=== PATIENT | female | born 1995 | race Hispanic/Latino ===

== ENCOUNTER 2022-05-04 06:33 | Outpatient (CLI) ==
[~2022-05-04] VITALS: Ht 157.5 cm; Wt 77.0 kg
[2022-05-04 06:57] VITALS: BP 117/68
[2022-05-04] MEDS ORDERED: VITA100T59 PO (07:00)
[2022-05-04] MEDS ORDERED: IRON27TA2 PO (07:00)
[2022-05-04] MEDS ORDERED: PRENTAB9 PO (07:00)
[2022-05-04] MEDS ORDERED: HOME MED LIST COMPLETE! XX SCH (07:00)
== END 2022-05-04 08:00 | disposition home or self-care (01) ==
LOC: M LDO 06:33
PROVIDERS: ATTEND Obstetrics & Gynecology
DX: O99.353 Diseases of the nervous system complicating pregnancy, third trimester (principal); G56.01 Carpal tunnel syndrome, right upper limb; Z3A.37 37 weeks gestation of pregnancy
CPT/HCPCS: 59025; G0463

== ENCOUNTER 2022-05-15 18:21 | Outpatient (CLI) ==
[~2022-05-15] VITALS: Ht 157.5 cm; Wt 77.6 kg
[~2022-05-15 18:21] MED LIST: IRON27TA2 PO; PRENTAB9 PO; VITA100T59 PO
[2022-05-15 18:42] VITALS: BP 121/84
[2022-05-15] MEDS ORDERED: HOME MED LIST COMPLETE! XX SCH (19:45)
== END 2022-05-15 19:49 | disposition home or self-care (01) ==
LOC: M LDO 18:21
PROVIDERS: ATTEND Obstetrics & Gynecology
DX: O47.1 False labor at or after 37 completed weeks of gestation (principal); Z3A.38 38 weeks gestation of pregnancy; O99.820 Streptococcus B carrier state complicating pregnancy; O99.013 Anemia complicating pregnancy, third trimester; D64.9 Anemia, unspecified
CPT/HCPCS: 59025; G0463

== ENCOUNTER 2022-05-22 21:05 | Outpatient (CLI) ==
[~2022-05-22] VITALS: Ht 157.5 cm; Wt 77.4 kg
[2022-05-22 21:20] VITALS: BP 133/80
== END 2022-05-22 22:15 | disposition home or self-care (01) ==
LOC: M LDO 21:05
PROVIDERS: ATTEND Obstetrics & Gynecology
DX: O47.1 False labor at or after 37 completed weeks of gestation (principal); Z3A.40 40 weeks gestation of pregnancy; O99.820 Streptococcus B carrier state complicating pregnancy
CPT/HCPCS: 59025; G0463

== ENCOUNTER 2022-05-23 07:11 | Inpatient (IN) | payer OTHER, SELFPAY ==
[~2022-05-23] VITALS: Ht 157.5 cm; Wt 77.2 kg
[2022-05-23] VITALS (35 sets, daily range): BP systolic 104–135; BP diastolic 53–82
[2022-05-23] MEDS ORDERED: PENICILLIN G POTASSIUM IV 5 MU in D5W MINI-BAG PLUS 100 ML IV STA (07:52)
[2022-05-23] MEDS ORDERED: LACTATED RINGER'S 1000 ML IV ONE (07:55)
[2022-05-23] MEDS ORDERED: OXYTOCIN INJ 10 UNITS/ML VIAL (J2590) IV PRN (07:55)
[2022-05-23] MEDS ORDERED: OXYTOCIN DRIP 30 UNITS in IV 1 EA IV PRN ×4 (07:55)
[2022-05-23] MEDS ORDERED: TRANEXAMIC ACID INJection 1,000 MG in NS 100 ML IV PRN (07:55)
[2022-05-23] MEDS ORDERED: METHYLERGONOVINE MALEATE 0.2 MG/ML VIAL (J2210) IM PRN (07:55)
[2022-05-23 08:55] LABS: HEMATOCRIT 35.3 % (36.0-47.0); HEMOGLOBIN 11.4 g/dl (12.0-15.5); MEAN CORPUSCULAR HEMOGLOBIN 25.2 pg (27.0-33.0); MEAN CORPUSCULAR HGB CONC 32.3 g/dl (32.0-36.5); MEAN CORPUSCULAR VOLUME 78.1 fl (80.0-96.0); PLATELET COUNT, AUTOMATED 278 10^3/uL (150-450); RED BLOOD COUNT 4.52 10^6/uL (4.00-5.40); WHITE BLOOD COUNT 10.7 10^3/uL (4.0-10.0)
[2022-05-23] MEDS ORDERED: FENTANYL 2MCG/ML ROPIVACAINE 0.2% IN 0.9% NACL 100ML IVBAG As Ordered ONE (10:24)
[2022-05-23] MEDS ORDERED: ONDANSETRON 4MG 2ML VIAL IV PRN (10:30)
[2022-05-23] MEDS ORDERED: LR 500 ML IV PRN (10:30)
[2022-05-23] MEDS ORDERED: EPIDURAL/PCA KEYS XX PRN (10:30)
[2022-05-23] MEDS ORDERED: ePHEDrine SULFATE 25 MG/5 ML(5MG/ML) SYRINGE IVP PRN (10:30)
[2022-05-23] MEDS ORDERED: FENTANYL/ROPIVACAINE/NACL BAG 100 ML EPIDURAL SCH (10:30)
[2022-05-23] MEDS ORDERED: diphenhydrAMINE 50MG/ML VIAL (J1200) IV PRN (10:30)
[2022-05-23] MEDS ORDERED: NALOXONE INJ 0.4MG/1ML VIAL (J2310 PER 1MG) IV PRN (10:30)
[2022-05-23] MEDS: FENTANYL/ROPIVACAINE/NACL BAG 100 ML EPIDURAL SCH ×2 (10:48→21:02)
[2022-05-23] MEDS: LR 1,000 ML IV SCH ×2 (11:37→16:23)
[2022-05-23] MEDS ORDERED: OXYTOCIN DRIP 30 UNITS in IV 1 EA IV SCH (12:25)
[2022-05-23] MEDS: PENICILLIN G POTASSIUM IV 2.5 MU in IV 1 EA IV SCH ×3 (12:45→20:40)
[2022-05-24] VITALS (10 sets, daily range): BP systolic 120–144; BP diastolic 59–83
[2022-05-24 01:34] LABS: CORD GAS ABE A -7.6; CORD GAS ABE V -7.8; CORD GAS HCO3 A 18.1 MEQ/L; CORD GAS O2 SAT A 80.3 %; CORD GAS O2 SAT V 85.1 %; CORD GAS PH A 7.296 UNITS; CORD GAS PH V 7.293 UNITS; CORD GAS PO2 A 38.4 mmHg; CORD GAS PO2 V 43.2 mmHg; CORD GAS TCO2 A 19.3 MEQ/L; CORD GAS TCO2 V 19.2 MEQ/L
[2022-05-24] MEDS ORDERED: ONDANSETRON 4MG 2ML VIAL IV PRN (01:45)
[2022-05-24] MEDS ORDERED: METHYLERGONOVINE MALEATE 0.2 MG TAB PO PRN (01:45)
[2022-05-24] MEDS ORDERED: DOCUSATE SODIUM 100MG CAPSULE PO PRN (01:45)
[2022-05-24] MEDS ORDERED: PROMETHAZINE 25 MG TAB PO PRN (01:45)
[2022-05-24] MEDS ORDERED: LR 1,000 ML IV SCH (01:45)
[2022-05-24] MEDS ORDERED: OXYTOCIN DRIP 30 UNITS in IV 1 EA IV SCH (01:45)
[2022-05-24] MEDS ORDERED: DIBUCAINE 1% OINTMENT 30GM TOP PRN (01:45)
[2022-05-24] MEDS ORDERED: RHOGAM 300 MCG (1500 IU) INJ (J2790) IM SCH (01:45)
[2022-05-24] MEDS: IBUPROFEN 800 MG TAB PO SCH ×3 (03:47→18:00)
[2022-05-24] MEDS: ACETAMINOPHEN 500 MG TAB PO SCH ×4 (03:48→20:41)
[2022-05-24] MEDS: PRENATAL VITAMINS CHEWABLE TABLET PO SCH (08:03)
[2022-05-25] MEDS: IBUPROFEN 800 MG TAB PO SCH ×2 (01:17→10:30)
[2022-05-25] MEDS: ACETAMINOPHEN 500 MG TAB PO SCH ×2 (01:17→07:36)
[2022-05-25 06:00] VITALS: BP 121/83
[2022-05-25 06:50] LABS: HEMATOCRIT 30.6 % (36.0-47.0); MEAN CORPUSCULAR HEMOGLOBIN 24.2 pg (27.0-33.0); MEAN CORPUSCULAR HGB CONC 30.1 g/dl (32.0-36.5); MEAN CORPUSCULAR VOLUME 80.5 fl (80.0-96.0); PLATELET COUNT, AUTOMATED 234 10^3/uL (150-450); WHITE BLOOD COUNT 12.9 10^3/uL (4.0-10.0)
[2022-05-25] MEDS ORDERED: IBUP80TA PO (06:55)
[2022-05-25] MEDS ORDERED: COLA100C5 PO (06:55)
[2022-05-25] MEDS ORDERED: ACET-683 PO (06:55)
[2022-05-25 07:13] LABS: HEMOGLOBIN 9.2 g/dl (12.0-15.5)
[2022-05-25] MEDS: PRENATAL VITAMINS CHEWABLE TABLET PO SCH (07:35)
[2022-05-26] MEDS ORDERED: MEASLES,MUMPS,RUBELLA VACCINE INJ (MMR-II) (90707) SC.IMMUN ONE (09:00)
== END 2022-05-25 12:12 | disposition home or self-care (01) | DRG 807 ==
LOC: M LDO 07:11 → M LDI 07:53 → M OBS 05-24 03:59
PROVIDERS: ADMIT Obstetrics & Gynecology; ATTEND Obstetrics & Gynecology
PROC: 10907ZC Drainage of Amniotic Fluid, Therapeutic from Products of Conception, Via Natural or Artificial Opening (ICD-10-PCS; 2022-05-23)
PROC: 10E0XZZ Delivery of Products of Conception, External Approach (ICD-10-PCS; principal; 2022-05-24)
DX: O69.81X0 Labor and delivery complicated by cord around neck, without compression, not applicable or unspecified (principal); Z37.0 Single live birth; Z3A.40 40 weeks gestation of pregnancy; O99.824 Streptococcus B carrier state complicating childbirth; O77.0 Labor and delivery complicated by meconium in amniotic fluid; O70.0 First degree perineal laceration during delivery

== ENCOUNTER → 2022-11-20 | Outpatient (CLI) | payer OTHER ==
[~2022-11-20] MED LIST changes: +ACET-683 PO; +COLA100C5 PO; +IBUP80TA PO
== END ==
LOC: M RAD 13:11
PROVIDERS: ATTEND Advanced Practice Midwife
DX: Z34.82 Encounter for supervision of other normal pregnancy, second trimester (principal); Z3A.20 20 weeks gestation of pregnancy

== ENCOUNTER 2023-03-25 06:42 | Inpatient (IN) | payer OTHER ==
[2023-03-25] VITALS (30 sets, daily range): BP systolic 101–142; BP diastolic 56–87
[~2023-03-25] VITALS: Ht 157.5 cm; Wt 80.1 kg
[2023-03-25] MEDS ORDERED: HOME MED LIST COMPLETE! XX SCH (07:30)
[2023-03-25] MEDS ORDERED: PENICILLIN G POTASSIUM 5 MU IV 5 MU in D5W MINI-BAG PLUS 100 ML IV STA (08:47)
[2023-03-25] MEDS ORDERED: LACTATED RINGER'S 1000 ML IV STA (08:47)
[2023-03-25] MEDS ORDERED: LIDOCAINE 1% MDV 20ML VIAL INFIL PRN (08:50)
[2023-03-25] MEDS ORDERED: METHYLERGONOVINE MALEATE 0.2MG/ML 1ML VIAL IM PRN (08:50)
[2023-03-25] MEDS ORDERED: TRANEXAMIC ACID INJection 1,000 MG in NS 100 ML IV PRN (08:50)
[2023-03-25] MEDS ORDERED: OXYTOCIN DRIP 30 UNITS in IV 1 EA IV PRN (08:50)
[2023-03-25] MEDS ORDERED: CARBOPROST TROMETHAMINE 250 MCG/ML AMP IM PRN (08:50)
[2023-03-25 09:27] LABS: HEMATOCRIT 35.7 % (36.0-47.0); HEMOGLOBIN 11.1 g/dl (12.0-15.5); MEAN CORPUSCULAR HEMOGLOBIN 23.2 pg (27.0-33.0); MEAN CORPUSCULAR HGB CONC 31.1 g/dl (32.0-36.5); MEAN CORPUSCULAR VOLUME 74.7 fl (80.0-96.0); PLATELET COUNT, AUTOMATED 249 10^3/uL (150-450); RED BLOOD COUNT 4.78 10^6/uL (4.00-5.40); WHITE BLOOD COUNT 14.1 10^3/uL (4.0-10.0)
[2023-03-25] MEDS ORDERED: FENTANYL 2MCG/ML ROPIVACAINE 0.2% IN 0.9% NACL 100ML IVBAG As Ordered ONE (09:38)
[2023-03-25] MEDS ORDERED: FENTANYL/ROPIVACAINE/NACL BAG 100 ML EPIDURAL SCH (09:40)
[2023-03-25] MEDS ORDERED: ONDANSETRON 4MG 2ML VIAL IV PRN (09:40)
[2023-03-25] MEDS ORDERED: NALOXONE INJ 0.4MG/1ML VIAL IV PRN (09:40)
[2023-03-25] MEDS ORDERED: LR 500 ML IV PRN (09:40)
[2023-03-25] MEDS ORDERED: diphenhydrAMINE 50MG/ML VIAL IV PRN (09:40)
[2023-03-25] MEDS ORDERED: ePHEDrine SULFATE 25 MG/5 ML(5MG/ML) SYRINGE IVP PRN (09:40)
[2023-03-25] MEDS ORDERED: EPIDURAL/PCA KEYS XX PRN (09:40)
[2023-03-25] MEDS: LR 1,000 ML IV SCH ×2 (10:43→16:50)
[2023-03-25] MEDS: PEN G POT 3,000,000 UNIT/50 ML 3,000,000 UNIT in IV 1 EA IV SCH ×2 (13:08→17:00)
[2023-03-25 17:33] LABS: CORD GAS ABE A -11.8; CORD GAS HCO3 A 17.6 MMOL/L; CORD GAS O2 SAT A 62.1 %; CORD GAS PH A 7.139 UNITS; CORD GAS PO2 A 32.5 mmHg; CORD GAS SBC A 14.7 MMOL/L; CORD GAS TCO2 A 19.2 MMOL/L
[2023-03-25 17:34] LABS: CORD GAS ABE V -8.7; CORD GAS HCO3 V 17.8 MMOL/L; CORD GAS O2 SAT V 53.6 %; CORD GAS PCO2 V 40.2 mmHg; CORD GAS PH V 7.263 UNITS; CORD GAS PO2 V 23.5 mmHg; CORD GAS SBC V 16.6 MMOL/L
[2023-03-25] MEDS ORDERED: DOCUSATE SODIUM 100MG CAPSULE PO PRN (18:00)
[2023-03-25] MEDS ORDERED: DIBUCAINE 1% OINTMENT 30GM TOP PRN (18:00)
[2023-03-25] MEDS ORDERED: ACETAMINOPHEN TAB 650MG DOSE (2X325MG) PO PRN (18:00)
[2023-03-25] MEDS: IBUPROFEN 800 MG TAB PO PRN (20:09)
[2023-03-25] MEDS ORDERED: IBUPROFEN 600MG TAB PO PRN (21:55)
[2023-03-25] MEDS: ACETAMINOPHEN 500 MG TAB PO PRN (22:03)
[2023-03-26 06:00] VITALS: BP 128/72
[2023-03-26] MEDS: ACETAMINOPHEN 500 MG TAB PO PRN ×2 (07:55→15:43)
[2023-03-26] MEDS: PRENATAL VITAMINS CHEWABLE TABLET PO SCH (07:55)
[2023-03-26] MEDS ORDERED: GI COCKTAIL 50ML BTL(HYOSCYAMINE/MAALOX/LIDOCAINE VISCOUS)(1:3:1) PO ONE (16:00)
[2023-03-26 18:00] VITALS: BP 114/57
[2023-03-26] MEDS: IBUPROFEN 800 MG TAB PO PRN (18:12)
[2023-03-26] MEDS: CAPSAICIN 0.025% CR 60 GM TOP SCH (21:50)
[2023-03-26] MEDS ORDERED: diphenhydrAMINE 25MG CAP PO ONE (23:00)
[2023-03-27] MEDS: ACETAMINOPHEN 500 MG TAB PO SCH ×3 (00:37→11:37)
[2023-03-27] MEDS: IBUPROFEN 800 MG TAB PO SCH ×2 (01:48→09:38)
[2023-03-27 06:00] VITALS: BP 134/70
[2023-03-27] MEDS: CAPSAICIN 0.025% CR 60 GM TOP SCH (08:03)
[2023-03-27] MEDS: PRENATAL VITAMINS CHEWABLE TABLET PO SCH (08:03)
== END 2023-03-27 13:00 | disposition home or self-care (01) | DRG 807 ==
LOC: M LDO 06:42 → M LDI 08:48 → M OBS 20:40
PROVIDERS: ADMIT Registered Nurse; ATTEND Registered Nurse
PROC: 10E0XZZ Delivery of Products of Conception, External Approach (ICD-10-PCS; principal; 2023-03-25)
PROC: 0UH97HZ Insertion of Contraceptive Device into Uterus, Via Natural or Artificial Opening (ICD-10-PCS; 2023-03-25)
DX: O99.824 Streptococcus B carrier state complicating childbirth (principal); Z37.0 Single live birth; Z3A.38 38 weeks gestation of pregnancy; Z30.430 Encounter for insertion of intrauterine contraceptive device